=== PATIENT | male | born 1980 | race Hispanic/Latino ===

== ENCOUNTER 2017-05-20 20:17 | Emergency (ER) | payer BC ==
[2017-05-20 21:19] VITALS: RESP 16
[2017-05-20] MEDS ORDERED: Sodium Chloride 0.9% 1,000 ML IV STA (21:33)
[2017-05-20 22:20] LABS: VENOUS BLOOD GAS BASE EXCESS 4.6 mmol/L (0.0-2.0); VENOUS BLOOD GAS PCO2 56 mmHg (40-60); VENOUS BLOOD PH 7.36 (7.32-7.43)
[2017-05-20 22:22] LABS: BASO % 0.1 % (0.0-2.0); EOS % 0.2 % (0.0-4.0); HEMATOCRIT 38.7 % (35.0-51.0); LYMPH % 11.4 % (20.0-40.0); MEAN CELL VOLUME 85.1 fl (80.0-94.0); MEAN CORPUSCULAR HEMOGLOBIN 29.5 pg (27.0-31.0); MEAN CORPUSCULAR HGB CONC 34.7 g/dL (33.0-37.0); MEAN PLATELET VOLUME 8.6 fl (7.2-11.7); MONO # 0.6 K/uL (0.0-0.8); MONO % 7.4 % (0.0-10.0); NEUT # 7.1 K/uL (1.8-7.0); NEUT % 80.9 % (50.0-75.0); NRBC % 0.1 % (0.0-0.0); RED CELL DISTRIBUTION WIDTH 13.1 % (11.5-14.5); WHITE BLOOD COUNT 8.7 K/uL (4.8-10.8)
[2017-05-20 22:30] LABS: ALB/GLOB RATIO 1.7 (1.0-2.1); ALKALINE PHOSPHATASE 47 U/L (38-126); ALT/SGPT 26 U/L (21-72); AST/SGOT 20 U/L (17-59); BILIRUBIN,TOTAL 0.5 mg/dl (0.2-1.3); BLOOD UREA NITROGEN 11 mg/dl (9-20); CALCIUM 9.1 mg/dL (8.4-10.2); CARBON DIOXIDE 27 mmol/L (22-30); CHLORIDE 100 mmol/L (98-107); GFR AFRICAN-AMERICAN > 60; GLUCOSE,RANDOM 114 mg/dL (75-110); POTASSIUM 4.2 MMOL/L (3.6-5.0); SODIUM 142 mmol/l (132-148); TOTAL PROTEIN 6.9 G/DL (6.3-8.2)
[2017-05-20] MEDS ORDERED: Iohexol 240 (50 ml) PO STA (22:54)
[2017-05-20] MEDS ORDERED: Iohexol 240 (50 ml) ONE (23:12)
[2017-05-21] MEDS ORDERED: Sodium Chloride 0.9% 50 ML IV ONE (01:05)
[2017-05-21] MEDS ORDERED: Iohexol 300 100 ML IJ ONE (01:05)
[2017-05-21 04:03] VITALS: BP 119/62; PULSE 94
[2017-05-21 04:43] VITALS: O2SAT 97
[2017-05-21 05:19] VITALS: TEMP 98.8
== END 2017-05-21 06:37 | disposition home or self-care (01) ==
LOC: H.ER 20:17
DX: B34.9 Viral infection, unspecified (principal)
CPT/HCPCS: 74177; 80053; 82803; 85025; 86308; 87040; 87804; 96361; 96374; 99283; J1885; J7040; Q9966; Q9967